=== PATIENT | female | born 1990 | race Caucasian/White ===

== ENCOUNTER 2017-06-14 19:32 | Emergency (ER) | payer BC, OTHER ==
[2017-06-14 19:50] VITALS: BP 116/64; PULSE 75; TEMP 98.2; BMI 18.1
--- NOTE | 2017-06-14 19:50 | PDOC ---
Rapid Medical Evaluation Time Seen by Provider: 06/14/17 19:45 Medical Evaluation: Allergies Allergy/AdvReac Type Severity Reaction Status Date / Time No Known Drug Allergies Allergy Verified 10/29/15 07:10 06/14/17 19:45 I have performed a brief in-person person evaluation of the patient. The patient presents with a chief complaint of vaginal bleeding x 1 hour, states bleeding increases with walking and lower abdominal pain. , + home test, lmp 04/17/2017, has 1st in am. Denies dizziness or shortness of breath. Pertinent physical exam findings: NAD lungs clear bilaterally heart s1s2 abdomen + bowel sounds, non tender abdomen I have ordered the following: urine hcg, bhcg, type and screen, cbc The patient will proceed to the ED for further evaluation.
[2017-06-14 22:11] LABS: BASO % 0.1 % (0-2.0); EOS % 2.4 % (0-4.5); HEMATOCRIT 33.2 % (32.4-45.2); HEMOGLOBIN 11.5 GM/dL (10.7-15.3); LYMPH % 22.2 % (8-40); MCHC 34.7 g/dl (32.0-36.0); MEAN CELL VOLUME 86.7 fl (80-96); MEAN PLT VOLUME 9.5 fl (7.5-11.1); MONO % 6.3 % (3.8-10.2); PLATELET COUNT 230 K/MM3 (134-434); RBC 3.83 M/mm3 (3.60-5.2); WHITE BLOOD COUNT 8.1 K/mm3 (4.0-10.0)
--- NOTE | 2017-06-14 22:16 | PDOC ---
History of Present Illness - General History Source: Patient, Family, Old Records Exam Limitations: No Limitations - History of Present Illness Initial Comments: 06/14/17 22:22 The patient is a 26 year old female presenting with her partner, A1, with no significant past medical history, who presents to the emergency department with vaginal bleeding and abdominal pain onset 1 hour prior to presentation. She reports that her abdominal pain is a cramping sensation, localized in the suprapubic region, ranging from mild to moderate, without radiation or modifying factors. She describes her vaginal bleeding as watery and has used 1 pad thus far. She notes that she is set to get pre- care tomorrow. She reports that her first born was born via vaginal . The patient denies chest pain, shortness of breath, headache and dizziness. Denies fever, chills, nausea, vomit, diarrhea and constipation. Denies dysuria, frequency, urgency and hematuria. LMP: 04/17/2017 Allergies: None Past surgical history: D&C for miscarriage (2015) Social history: No alcohol, tobacco or drug use reported. <Herve Lyons - Last Filed: 06/14/17 22:22> <Shreya Montoya - Last Filed: 06/15/17 00:03> - General Chief Complaint: Pain Stated Complaint: VAGINAL BLEEDING (8 WKS ) Time Seen by Provider: 06/14/17 19:45 Past History <Herve Lyons - Last Filed: 06/14/17 22:22> - Past Medical History Anemia: No Asthma: No Cancer: No Cardiac Disorders: No CVA: No COPD: No CHF: No Dementia: No Diabetes: No GI Disorders: No Disorders: No HTN: No Hypercholesterolemia: No Liver Disease: No Seizures: No Thyroid Disease: No Other medical history: Pt denies - Suicide/Smoking/Psychosocial Hx Smoking History: Never smoked Have you smoked in the past 12 months: No Information on smoking cessation initiated: No Hx Alcohol Use: No Drug/Substance Use Hx: No Substance Use Type: None Hx Substance Use Treatment: No <Shreya Montoya - Last Filed: 06/15/17 00:03> - Past Medical History Allergies/Adverse Reactions: Allergies Allergy/AdvReac Type Severity Reaction Status Date / Time No Known Drug Allergies Allergy Verified 06/14/17 19:47 Home Medications: Ambulatory Orders Multivit with Iron,Minerals [Compete] 1 each PO DAILY 10/22/15 Review of Systems - Review of Systems Able to Perform ROS?: Yes Comments:: 06/14/17 22:23 GENERAL/CONSTITUTIONAL: No fever or chills. No weakness. HEAD, EYES, EARS, NOSE AND THROAT: No change in vision. No ear pain or discharge. No sore throat. CARDIOVASCULAR: No chest pain or shortness of breath RESPIRATORY: No cough, wheezing, or hemoptysis. GASTROINTESTINAL: (+) Abdominal pain. No nausea, vomiting, diarrhea or constipation. GENITOURINARY: (+) Vaginal bleeding. No dysuria, frequency, or change in urination. MUSCULOSKELETAL: No joint or muscle swelling or pain. No neck or back pain. SKIN: No rash NEUROLOGIC: No headache, vertigo, loss of consciousness, or change in strength/ sensation. ENDOCRINE: No increased thirst. No abnormal weight change HEMATOLOGIC/LYMPHATIC: No anemia, easy bleeding, or history of blood clots. ALLERGIC/IMMUNOLOGIC: No hives or skin allergy. <Herve Lyons - Last Filed: 06/14/17 22:22> *Physical Exam - Vital Signs Last Vital Signs Temp Pulse Resp BP Pulse Ox 98.2 F 75 18 116/64 100 06/14/17 19:48 06/14/17 19:48 06/14/17 19:48 06/14/17 19:48 06/14/17 19:48 - Physical Exam Comments: 06/14/17 22:23 GENERAL: Awake, alert, and fully oriented, in no acute distress HEAD: No signs of trauma, normocephalic, atraumatic EYES: PERRLA, EOMI, sclera anicteric, conjunctiva clear ENT: Auricles normal inspection, hearing grossly normal, nares patent, oropharynx clear without exudates. Moist mucosa NECK: Normal ROM, supple, no lymphadenopathy, JVD, or masses LUNGS: No distress, speaks full sentences, clear to auscultation bilaterally HEART: Regular rate and rhythm, normal S1 and S2, no murmurs, rubs or gallops, peripheral pulses normal and equal bilaterally. ABDOMEN: Soft, nontender, normoactive bowel sounds. No guarding, no rebound. No masses EXTREMITIES : Normal inspection, Normal range of motion, no edema. No clubbing or cyanosis. NEUROLOGICAL: Cranial nerves II through XII grossly intact. Normal speech, normal gait, no focal sensorimotor deficits SKIN: Warm, Dry, normal turgor, no rashes or lesions noted <Herve Lyons - Last Filed: 06/14/17 22:22> - Vital Signs Last Vital Signs Temp Pulse Resp BP Pulse Ox 98.2 F 75 18 116/64 100 06/14/17 19:48 06/14/17 19:48 06/14/17 19:48 06/14/17 19:48 06/14/17 19:48 <Shreya Montoya - Last Filed: 06/15/17 00:03> ED Treatment Course - LABORATORY CBC & Chemistry Diagram: 06/14/17 22:05 <Herve Lyons - Last Filed: 06/14/17 22:22> - LABORATORY CBC & Chemistry Diagram: 06/14/17 22:05 - RADIOLOGY Radiology Studies Ordered: Category Date Time Status TRANSVAGINAL US PREG [US] Stat Ultrasound 06/14/17 21:41 Ordered <Shreya Montoya - Last Filed: 06/15/17 00:03> *DC/Admit/Observation/Transfer - Attestations Scribe Attestion: 06/14/17 22:23 Documentation prepared by Herve Lyons, acting as medical billing supervisor for Shreya Montoya MD <Herve Lyons - Last Filed: 06/14/17 22:22> <Shreya Montoya - Last Filed: 06/15/17 00:03> Diagnosis at time of Disposition: Threatened Subchorionic hematoma in first trimester Qualifiers: Fetus number: single or unspecified fetus Qualified Code(s): O41.8X10 - Other specified disorders of amniotic fluid and membranes, first trimester, not applicable or unspecified; O46.8X1 - Other antepartum hemorrhage, first trimester; O46.8X1 - Other antepartum hemorrhage, first trimester - Discharge Dispostion Disposition: HOME Condition at time of disposition: Stable - Referrals Referrals: Kierra Magallanes MD [Primary Care Provider] - - Patient Instructions Printed Discharge Instructions: DI for Threatened Additional Instructions: please followup with your director funds development - Post Discharge Activity
== END 2017-06-15 00:05 | disposition home or self-care (01) ==
LOC: JER 19:32
DX: O20.0 Threatened abortion (principal); O41.8X10 Other specified disorders of amniotic fluid and membranes, first trimester, not applicable or unspecified; Z3A.08 8 weeks gestation of pregnancy
CPT/HCPCS: 36415; 76801-TC; 84702; 84703; 85025; 86850; 86900; 86901; 99282-25

== ENCOUNTER 2018-01-19 10:04 | Inpatient (IN) | payer OTHER ==
[2018-01-19] MEDS ORDERED: DEXTROSE 5%-LACTATED RINGERS 1,000 ML IV SCH (10:30)
[2018-01-19 10:55] LABS: BASO % 0.2 % (0-2.0); EOS % 1.2 % (0-4.5); HEMATOCRIT 37.8 % (32.4-45.2); HEMOGLOBIN 12.6 GM/dL (10.7-15.3); LYMPH % 18.5 % (8-40); MCH 28.7 pg (25.7-33.7); MCHC 33.2 g/dl (32.0-36.0); MEAN CELL VOLUME 86.3 fl (80-96); MEAN PLT VOLUME 10.2 fl (7.5-11.1); NEUT % 73.1 % (42.8-82.8); PLATELET COUNT 149 K/MM3 (134-434); RBC 4.39 M/mm3 (3.60-5.2); RDW 14.8 % (11.6-15.6); WHITE BLOOD COUNT 7.6 K/mm3 (4.0-10.0)
[2018-01-19 11:07] LABS: INR 0.95 (0.83-1.09); PROTHROMBIN TIME (PATIENT) 11.2 SEC (9.7-13.0)
[2018-01-19] MEDS ORDERED: AMPICILLIN SODIUM 2 GM VIAL ONE (11:08)
[2018-01-19 11:10] LABS: ACTIVATED PTT 25.5 SECONDS (25.2-36.5)
[2018-01-19] MEDS ORDERED: TUBERCULIN PPD 5 TU/0.1ML SYRINGE (IN PATIENT USE ONLY) ID ONE (11:15)
[2018-01-19 11:29] LABS: ANION GAP 8 MMOL/L (8-16); BLOOD UREA NITROGEN 6 mg/dL (7-18); CALCIUM 9.1 mg/dL (8.5-10.1); CHLORIDE 106 mmol/L (98-107); CO2 23 mmol/L (21-32); CREATININE 0.5 mg/dL (0.55-1.3); GLUCOSE,RANDOM 99 mg/dL (74-106); POTASSIUM 4.3 mmol/L (3.5-5.1); SODIUM 137 mmol/L (136-145)
[2018-01-19] MEDS ORDERED: OXYTOCIN 30 UNITS in 0.9% NS 30 UNIT/500 ML INFUS.BAG IVPB SCH (11:30)
[2018-01-19] MEDS ORDERED: AMPICILLIN - 2 GM in SODIUM CHLORIDE 100 ML IVPB ONE (11:40)
[2018-01-19 11:44] VITALS: BMI 24.3
[2018-01-19] MEDS ORDERED: OXYTOCIN 30 UNITS in 0.9% NS 30 UNIT/500 ML INFUS.BAG IVPB ONE (12:22)
--- NOTE | 2018-01-19 12:25 | HP ---
Past Medical History - Admission Chief Complaint: Here for labor induction. History of Present Illness: 27 y/o female with h/o here for labor induction (elective). SIUP at 39 + weeks gestation. uncomplicated. GBS positive. History Source: Patient, Medical Record Limitations to Obtaining History: No Limitations - Past Medical History Cardiovascular: No: HTN Pulmonary: No: Asthma, COPD Gastrointestinal: No: GERD, Irritable Bowel Disease Hepatobiliary: No: Hepatitis B, Hepatitis C Renal/: No: UTI ...: 3 ...Para: 1 ...Term: 1 ...: 0 ...Spon : 1 ...Induced : 0 ...Multiple Gestation: 0 ...LMP: 04/17/17 ... Weeks Gestation by Dates: 39.4 ...EDC by Dates: 01/22/18 ...EDC by Sono: 01/22/18 Heme/Onc: No: Anemia Psych: No: Anxiety, Bipolar, Depression - Past Surgical History Past Surgical History: Yes: None Hx Myomectomy: No Hx Transabdominal Cerclage: No Additional Surgical History: D&C - Smoking History Smoking history: Never smoked Have you smoked in the past 12 months: No - Alcohol/Substance Use Hx Alcohol Use: No History of Substance Use: reports: None - Social History Usual Living Arrangement: Yes: With Spouse ADL: Independent History of Recent Travel: No Home Medications - Allergies Allergies/Adverse Reactions: Allergies Allergy/AdvReac Type Severity Reaction Status Date / Time No Known Drug Allergies Allergy Verified 01/19/18 10:33 - Home Medications Home Medications: Ambulatory Orders Multivit with Iron,Minerals [Compete] 1 each PO DAILY 10/22/15 Review of Systems - Review of Systems Constitutional: reports: No Symptoms Eyes: reports: No Symptoms HENT: reports: No Symptoms Neck: reports: No Symptoms Cardiovascular: reports: No Symptoms Respiratory: reports: No Symptoms Gastrointestinal: reports: No Symptoms Genitourinary: reports: No Symptoms Breasts: reports: No Symptoms Reported Musculoskeletal: reports: No Symptoms Integumentary: reports: No Symptoms Neurological: reports: No Symptoms Endocrine: reports: No Symptoms Hematology/Lymphatic: reports: No Symptoms Psychiatric: reports: No Symptoms Physical Exam - Maternity Vital Signs: Vital Signs Temperature 97.9 F 01/19/18 11:00 Pulse Rate 82 01/19/18 12:00 Respiratory Rate 18 01/19/18 12:00 Blood Pressure 96/59 L 01/19/18 12:00 O2 Sat by Pulse Oximetry (%) Constitutional: Yes: Well Nourished, No Distress, Calm Eyes: Yes: Conjunctiva Clear, EOM Intact HENT: Yes: Atraumatic, Normocephalic Neck: Yes: Supple, Trachea Midline Cardiovascular: Yes: Regular Rate and Rhythm Lungs: Clear to auscultation Breast(s): Yes: WNL - Abdominal Exam/OB Number of Fetuses: Single Presentation: Vertex Contractions: Yes Regularity: Irregular Intensity: Unaware Monitor Mode: External Heart Rate (range): 140 Category: I Accelerations: Uniform Decelerations: None - Vaginal Exam/OB Vaginal Bleediing: No Speculum Exam: No Dilatation (cm): 3 Amniotic Membrane Status: Intact - Physical Exam Psychiatric: Yes: Alert, Oriented - Labs Lab Results: CBC, BMP 01/19/18 10:35 01/19/18 10:35 Hemorrhage Risk Assessment - Risk Factors Medium Risk Factors: Yes: None High Risk Factors: Yes: None Risk Score: 1 Risk Level: Medium Risk Problem List - Problems (1) GBS (group B Streptococcus carrier), +RV culture, currently Code(s): O99.820 - STREPTOCOCCUS B CARRIER STATE COMPLICATING Assessment/Plan elective IOL at 39 weeks for pitocin ampicillin for GBS PPx anticipate
[2018-01-19] MEDS ORDERED: BUTORPHANOL TARTRATE 1 MG/ML VIAL IVPB ONE (13:01)
[2018-01-19] MEDS ORDERED: PROMETHAZINE HCL 25 MG/1 ML VIAL IVPUSH ONE (13:01)
[2018-01-19] MEDS ORDERED: ELECTROLYTE-148 SOLN 1,000 ML IV SCH (13:15)
[2018-01-19] MEDS ORDERED: PANTOPRAZOLE 40 MG TABLET (FP) PO ONE (13:45)
[2018-01-19] MEDS ORDERED: AMPICILLIN SODIUM 1 GM VIAL ONE ×3 (15:19→23:35)
[2018-01-19] MEDS: AMPICILLIN - 1 GM in SODIUM CHLORIDE 100 ML IVPB SCH ×2 (15:29→19:30)
[2018-01-19] MEDS ORDERED: BUPIVACAINE HCL/PF 0.25% (2.5MG/ML) 10 ML VIAL ONE ×2 (20:14→23:12)
[2018-01-19] MEDS ORDERED: FENTANYL/BUPIVACAINE/NS/PF - PCEA - 50 ML DISP.SYRIN EP ONE (20:16)
[2018-01-19] MEDS ORDERED: FENTANYL/BUPIVACAINE/NS/PF - PCEA - 50 ML DISP.SYRIN EP SCH ×2 (20:30→22:01)
--- NOTE | 2018-01-19 20:41 | PN ---
Ante-Partal Exam - Subjective Subjective: Pt desires epidural Vital Signs: Vital Signs Temperature 98.6 F 01/19/18 18:00 Pulse Rate 74 01/19/18 19:00 Respiratory Rate 20 01/19/18 19:00 Blood Pressure 98/53 L 01/19/18 19:00 O2 Sat by Pulse Oximetry (%) Bleeding: No Headache: No Visual changes: No Right upper quadrant pain: No Pain (scale 1-10): 6 - Contractions Contractions: Yes Regularity: Regular Intensity: Mod/Strong - Exam during Labor Heart Rate: 140 Variability: Moderate Category: I Monitor Accelerations: Present Monitor Decelerations: None Exam: Vaginal Dilatation (cm): 3 Effacement (%): 60 Amniotic Membrane Status: Ruptured (AROM for clear fluid at this exam) Presentation: Vertex Station: -2 - Assessment/Plan Assessment/Plan: 27 y/o with SIUP at 39+ weeks, elective IOL AROM for clear fluid continue pitocin epidural prn ampicillin for GBS Prophylaxis anticipate
[2018-01-19] MEDS ORDERED: NALOXONE HCL 0.4 MG/ML VIAL IVPUSH PRN (21:31)
[2018-01-20] MEDS ORDERED: OXYTOCIN 20 UNITS in 0.9% NS 20 UNIT/1,000 ML INFUS.BAG IV ONE ×2 (02:49→05:08)
[2018-01-20] MEDS ORDERED: LIDOCAINE HCL 1% PRESERVATIVE FREE - 30ML VIAL ONE (02:49)
[2018-01-20] MEDS ORDERED: WITCH HAZEL 50% (TUCKS) 40 PAD/JAR PAD TP PRN (03:22)
[2018-01-20] MEDS ORDERED: BENZOCAINE 28 GM HEMORRHOIDAL OINTMENT TP PRN (03:22)
[2018-01-20] MEDS ORDERED: BISACODYL 10 MG SUPP.RECT RC PRN (03:22)
[2018-01-20] MEDS ORDERED: BENZOCAINE 20% 57 GM BOTTLE TP PRN (03:22)
[2018-01-20] MEDS ORDERED: METHYLERGONOVINE MALEATE 0.2 MG/1 ML AMP IM PRN (03:22)
[2018-01-20] MEDS ORDERED: OXYTOCIN 20 UNITS in 0.9% NS 20 UNIT/1,000 ML INFUS.BAG IV SCH (03:30)
--- NOTE | 2018-01-20 03:31 | PN ---
Delivery - Delivery Vaginal Delivery: No Problems Type of Anesthesia: Epidural Episiotomy/Laceration: None Delivery, Single - Condition of Home Demonstrator/Medical Staff Services Coordinator Present: No Gender: Male Position: Right, OA - 1 Minute Total Score: 9 5 Minutes Total Score: 9 - [place] Feeding Plan Initial Plan: Elected not to breastfeed exclusively throughout hospitalization Remarks - Remarks Remarks: Uncomplicated from HEATHER position across intact perineum anterior shoulder (left) and posterior shoulder delivered with ease along with remainder of 3vc noted, clamped and cut placenta delivered in tact and spontaneously sponge count correct after delivery mom stable baby to well baby nursery IV pitocin infusing after delivery
[2018-01-20] MEDS ORDERED: ACETAMINOPHEN 325 MG TABLET (FP) ONE (04:14)
[2018-01-20] MEDS ORDERED: IBUPROFEN 600 MG TABLET (FP) PO ONE (04:14)
[2018-01-20] MEDS: PRENATAL VITAMINS W/ FOLIC ACID TABLET (FP) PO SCH (10:44)
[2018-01-20] MEDS: IBUPROFEN 600 MG TABLET (FP) PO PRN ×2 (17:19→20:52)
[2018-01-20] MEDS: ACETAMINOPHEN 325 MG TABLET (FP) PO PRN ×2 (17:21→20:51)
--- NOTE | 2018-01-21 06:04 | PN ---
Post Progress Note - Subjective Subjective: 27 yo Para 2 status post vaginal delivery, seen and evaluated. Doing well. Post Day: 1 Type of Delivery: Vital Signs: Vital Signs Temperature 98.1 F 01/20/18 21:31 Pulse Rate 68 01/20/18 21:31 Respiratory Rate 20 01/20/18 21:31 Blood Pressure 109/71 01/20/18 21:31 O2 Sat by Pulse Oximetry (%) 98 01/20/18 04:10 Breast Exam: Yes: Soft Uterus: Yes: Fundus Firm Abdomen/GI: Yes: Abdomen soft, Tolerating PO Lochia: Yes: Rubra Lochia, amount: Moderate Extremities: Yes: Calves non-tender Activity: Ambulating - Labs Labs: CBC WBC 7.6 K/mm3 (4.0-10.0) 01/19/18 10:35 RBC 4.39 M/mm3 (3.60-5.2) 01/19/18 10:35 Hgb 12.6 GM/dL (10.7-15.3) 01/19/18 10:35 Hct 37.8 % (32.4-45.2) 01/19/18 10:35 MCV 86.3 fl (80-96) 01/19/18 10:35 MCH 28.7 pg (25.7-33.7) 01/19/18 10:35 MCHC 33.2 g/dl (32.0-36.0) 01/19/18 10:35 RDW 14.8 % (11.6-15.6) 01/19/18 10:35 Plt Count 149 K/MM3 (134-434) D 01/19/18 10:35 MPV 10.2 fl (7.5-11.1) 01/19/18 10:35 Absolute Neuts (auto) 5.6 K/mm3 (1.5-8.0) 01/19/18 10:35 Neutrophils % 73.1 % (42.8-82.8) 01/19/18 10:35 Lymphocytes % 18.5 % (8-40) 01/19/18 10:35 Monocytes % 7.0 % (3.8-10.2) 01/19/18 10:35 Eosinophils % 1.2 % (0-4.5) 01/19/18 10:35 Basophils % 0.2 % (0-2.0) 01/19/18 10:35 Nucleated RBC % 0 % (0-0) 01/19/18 10:35 Problem List - Problems (1) Status post vaginal delivery Code(s): [id number] - Assessment/Plan Status post vaginal delivery Stable Continue routine care
[2018-01-21 07:39] LABS: BASO % 0.2 % (0-2.0); EOS % 1.9 % (0-4.5); LYMPH % 19.5 % (8-40); MCHC 33.4 g/dl (32.0-36.0); MEAN CELL VOLUME 86.8 fl (80-96); MEAN PLT VOLUME 10.1 fl (7.5-11.1); MONO % 7.9 % (3.8-10.2); NEUT % 70.5 % (42.8-82.8); PLATELET COUNT 132 K/MM3 (134-434); RBC 4.15 M/mm3 (3.60-5.2); RDW 14.4 % (11.6-15.6); WHITE BLOOD COUNT 7.9 K/mm3 (4.0-10.0)
[2018-01-21] MEDS: IBUPROFEN 600 MG TABLET (FP) PO PRN ×2 (08:30→22:03)
[2018-01-21] MEDS: ACETAMINOPHEN 325 MG TABLET (FP) PO PRN ×2 (08:30→22:03)
[2018-01-21] MEDS ORDERED: DIPHTH,PERTUSS(ACELL),TET 0.5 ML DISP.SYRIN IM ONE (10:00)
[2018-01-21] MEDS: PRENATAL VITAMINS W/ FOLIC ACID TABLET (FP) PO SCH (11:54)
[2018-01-21] MEDS ORDERED: SENNOSIDES/DOCUSATE COMBO (SENNA PLUS) TABLET (UD) PO PRN (22:00)
[2018-01-22 01:49] VITALS: TEMP 97.6
--- NOTE | 2018-01-22 07:41 | DS ---
Physical Exam-MALL MANAGER Vital Signs: Vital Signs Temperature 97.6 F 01/21/18 21:00 Pulse Rate 67 01/21/18 21:00 Respiratory Rate 20 01/21/18 21:00 Blood Pressure 114/71 01/21/18 21:00 O2 Sat by Pulse Oximetry (%) 98 01/20/18 04:10 Constitutional: Yes: Well Nourished, No Distress Neck: Yes: WNL Respiratory: Yes: WNL Gastrointestinal: Yes: WNL, Soft ....Post : Yes: Uterus firm, Uterus non-tender Breast(s): Yes: WNL Musculoskeletal: Yes: WNL Extremities: Yes: WNL Edema: No Labs: CBC, BMP 01/21/18 07:00 01/19/18 10:35 Delivery - Delivery Vaginal Delivery: No Problems Type of Anesthesia: Epidural Episiotomy/Laceration: None EBL (cc): 300 Delivery, Single - Stages of Labor Date 1st Stage Initiatied: 01/19/18 Time 1st Stage Initiated: 19:45 Date 2nd Stage Initiated: 01/20/18 Time 2nd Stage Initiated: 02:45 Date of Delivery: 01/20/18 Time of Delivery: 03:10 Time Placenta Delivered: 03:12 - Condition of Door Assembler/Environmental Engineer Present: No Infant Gender: Male Weight: 7 lb 14 oz Position: Right, OA Total Hours ROM (Hrs/Mins): 7h 25m - 1 Minute Total Score: 9 5 Minutes Total Score: 9 - [place] Feeding Plan Initial Plan: Elected not to breastfeed exclusively throughout hospitalization Discharge Summary Reason For Visit: INDUCTION OF LABOR Current Active Problems GBS (group B Streptococcus carrier), +RV culture, currently (Acute) Status post vaginal delivery (Acute) Procedures: Principal: Normal vaginal delivery Condition: Good - Instructions Diet, Activity, Other Instructions: Physical activity Resume your normal everyday activity as tolerated no heavy lifting or exercise until seen by your surgeon. You may walk unlimited mango of and climb stairs. You may resume driving the car when you feel safe and comfortable behind the wheel. No sexual activity as instructed. Wound care If you have a bandage, leave it on, and keep dry for 48-72 hours. After that time discard the outer bandage. If they are tapes on the skin under the out of bandage leave them in place. They will peel off in the next 7 to 10 days. Do Not Peel them off. You may shower the day after surgery. If there are tapes present on the skin, you may shower over them. Diet There are no dietary restrictions. Eat healthy, high-fiber foods. Drink 6 to 8 glasses of liquid each day. This will assist in keeping your bowels are regular. Pain management You may take Tylenol or acetaminophen or Ibuprofen (for example, Motrin, Advil etc.) from my pain prescription medication is ordered should be taken as prescribed for moderate to severe pain. Call MD for any of the following: Severe pain not relieved by medication Fever of 101 or higher Excessive bleeding or drainage on dressing Inability to urinate Referrals: Angelica May DO [Staff Physician] - Disposition: HOME - Home Medications Comprehensive Discharge Medication List: Ambulatory Orders Multivit with Iron,Minerals [Compete] 1 each PO DAILY 10/22/15 Ibuprofen [Motrin -] 600 mg PO TID #21 tablet 01/22/18
[2018-01-22] MEDS: IBUPROFEN 600 MG TABLET (FP) PO PRN (07:54)
[2018-01-22] MEDS: ACETAMINOPHEN 325 MG TABLET (FP) PO PRN (07:55)
[2018-01-22 09:05] VITALS: BP 115/70; PULSE 64
[2018-01-22] MEDS: PRENATAL VITAMINS W/ FOLIC ACID TABLET (FP) PO SCH (10:29)
== END 2018-01-22 13:30 | disposition home or self-care (01) | DRG 807 ==
LOC: JLDR 10:04 → J3W 01-20 05:46
PROVIDERS: ADMIT Obstetrics & Gynecology; ATTEND Obstetrics & Gynecology
PROC: 10E0XZZ Delivery of Products of Conception, External Approach (ICD-10-PCS; principal; 2018-01-20)
DX: O99.824 Streptococcus B carrier state complicating childbirth (principal); Z37.0 Single live birth; Z3A.39 39 weeks gestation of pregnancy
CPT/HCPCS: 36415; 59409; 80048; 85025; 85610; 85730; 86593; 86850; 86900; 86901; 90686; 90715; G0008